=== PATIENT | female | born 1960 | race Caucasian/White ===

== ENCOUNTER 2024-12-10 13:22 | Inpatient (IN) | payer MEDICARE, OTHER ==
[~2024-12-10] VITALS: Ht 154.9 cm; Wt 35.8 kg
[2024-12-10] MEDS ORDERED: QUETIAPINE FUMARATE 25 MG TABLET PO PRN (16:30)
[2024-12-10] MEDS ORDERED: ZOLPIDEM TARTRATE 5 MG TABLET PO PRN ×2 (16:30)
[2024-12-10] MEDS ORDERED: ACETAMINOPHEN 325 MG TABLET PO PRN (16:30)
[2024-12-10] MEDS ORDERED: MAGNESIUM HYDROXIDE 30 ML UDC PO PRN (16:30)
[2024-12-10] MEDS ORDERED: MAG HYDROX/AL HYDROX/SIMETH 30 ML UDC PO PRN (16:30)
[2024-12-10 16:43] VITALS: BP 107/71; TEMP 97.9; O2SAT 98
[2024-12-10] MEDS ORDERED: ACET-73 PO (19:17)
[2024-12-10] MEDS ORDERED: POLY17PO4 PO (19:17)
[2024-12-10] MEDS ORDERED: BUSP15TA3 PO (19:17)
[2024-12-10] MEDS ORDERED: BISA10SU11 RC (19:17)
[2024-12-10] MEDS ORDERED: ALPR0.5T8 PO (19:17)
[2024-12-10] MEDS ORDERED: ACET325T53 PO (19:17)
[2024-12-10] MEDS ORDERED: OLAN10TA3 PO (19:17)
[2024-12-10] MEDS ORDERED: SENN8.6T19 PO (19:17)
[2024-12-10] MEDS ORDERED: MAGN400O6 PO (19:17)
[2024-12-10] MEDS ORDERED: PALI156D IM (19:17)
[2024-12-10] MEDS ORDERED: NA P133E RC (19:17)
[2024-12-10 21:17] VITALS: BP 92/67; TEMP 98.1; O2SAT 98
[2024-12-10] MEDS: Z GUARD REMEDY 4 OZ OINT TP SCH (21:25)
[2024-12-11] MEDS ORDERED: BISACODYL SUPP (10 MG) 10 MG/SUPP.RECT SUPP.RECT RC PRN (00:30)
[2024-12-11] MEDS ORDERED: MAGNESIUM HYDROXIDE 30 ML UDC PO PRN (00:30)
[2024-12-11] MEDS ORDERED: ACETAMINOPHEN 325 MG TABLET PO PRN (00:30)
[2024-12-11] MEDS ORDERED: ACETAMINOPHEN ES 500 MG TABLET PO PRN (00:30)
[2024-12-11] MEDS ORDERED: NA PHOS,M-B/NA PHOS,DI-BA 1 EA ENEMA RC PRN (00:30)
[2024-12-11 07:49] LABS: CHOLESTEROL 207 mg/dL (<200); HDL CHOLESTEROL 67 mg/dL (40-60); LDL 120 mg/dL (0-99); TRIGLYCERIDES 75 mg/dL (30-150)
[2024-12-11 08:00] VITALS: BP 96/62; TEMP 98.7; O2SAT 95
[2024-12-11 08:00] LABS: ALBUMIN 3.1 g/dL (3.4-5.0); BILIRUBIN,TOTAL 0.3 mg/dL (0.2-1.0); CALCIUM, SERUM 8.5 mg/dL (8.5-10.1); CREATININE 0.7 mg/dL (0.6-1.3); POTASSIUM 4.3 mmol/L (3.5-5.1); TOTAL PROTEIN, SERUM 6.2 g/dL (6.4-8.2)
[2024-12-11] MEDS: POLYETHYLENE GLYCOL 3350 17 GM POWD.PACK PO SCH (08:51)
[2024-12-11] MEDS: SENNOSIDES 8.6 MG TABLET PO SCH (08:51)
[2024-12-11] MEDS: ENSURE ENLIVE 237 ML LIQUID (VANILLA) PO SCH (11:15)
[2024-12-11 16:00] VITALS: BP 145/75; TEMP 97.9; O2SAT 96
[2024-12-11] MEDS: clonazePAM 0.5 MG TABLET PO SCH (19:04)
[2024-12-11 20:44] VITALS: BP 126/73; TEMP 98; O2SAT 97
[2024-12-11] MEDS: OLANZAPINE ZYDIS 5 MG TAB.RAPDIS PO SCH (21:42)
[2024-12-12 08:00] VITALS: BP 119/83; TEMP 98; O2SAT 98
[2024-12-12 16:00] VITALS: BP 109/81; TEMP 98; O2SAT 96
[2024-12-12 20:57] VITALS: BP 111/72; TEMP 97.7; O2SAT 96
[2024-12-13 08:00] VITALS: BP 108/76; TEMP 97.6; O2SAT 97
[2024-12-13] MEDS: DIVALPROEX SODIUM 125 MG TABLET.DR PO SCH (09:00)
[2024-12-13 16:00] VITALS: BP 118/66; TEMP 98; O2SAT 95
[2024-12-13 20:33] VITALS: BP 114/73; TEMP 97.5; O2SAT 96
[2024-12-14 21:20] VITALS: BP 116/79; TEMP 98.1; O2SAT 96
[2024-12-15 08:00] VITALS: BP 120/76; TEMP 98.6; O2SAT 98
[2024-12-15 16:00] VITALS: BP 131/75; TEMP 97.7; O2SAT 97
[2024-12-15 19:58] VITALS: BP 116/80; TEMP 98; O2SAT 100
[2024-12-16 08:00] VITALS: BP 116/72; TEMP 97.6; O2SAT 99
[2024-12-16 16:00] VITALS: BP 114/78; TEMP 97.8; O2SAT 98
[2024-12-16 19:23] LABS: BASOPHILS % (AUTO) 0.5 % (0.0-2.0); EOSINOPHILS % (AUTO) 0.4 % (0.0-6.0); HEMATOCRIT 40 % (33-45); HEMOGLOBIN 13.3 g/dL (11.5-14.8); LYMPHOCYTES # (AUTO) 1.4 K/uL (0.8-4.8); LYMPHOCYTES % (AUTO) 21.8 % (20.0-44.0); MEAN CORPUSCULAR HEMOGLOBIN 26 PG (26.0-33.0); MEAN CORPUSCULAR HGB CONC 33 g/dl (31.0-36.0); MEAN CORPUSCULAR VOLUME 80 fL (82-100); MONOCYTES # (AUTO) 0.4 K/uL (0.1-1.30); MONOCYTES % (AUTO) 5.6 % (2.0-12.0); NEUTROPHILS # (AUTO) 4.7 K/uL (1.8-8.9); NEUTROPHILS % (AUTO) 71.7 % (43.0-81.0); PLATELET COUNT (AUTO) 305 K/uL (150-450); RED BLOOD CELL COUNT(AUTO) 5.06 MIL/uL (4.0-5.2); RED CELL DISTRIBUTION WIDTH 14.7 % (11.5-15.0); WHITE BLOOD COUNT (AUTO) 6.5 K/uL (4.3-11.0)
[2024-12-16 19:43] LABS: ALBUMIN 3.3 g/dL (3.4-5.0); BILIRUBIN,TOTAL 0.4 mg/dL (0.2-1.0); CALCIUM, SERUM 8.9 mg/dL (8.5-10.1); CREATININE 0.6 mg/dL (0.6-1.3); MAGNESIUM 2.2 mg/dL (1.8-2.4); POTASSIUM 4.2 mmol/L (3.5-5.1); TOTAL PROTEIN, SERUM 6.4 g/dL (6.4-8.2)
[2024-12-16 20:22] VITALS: BP 105/72; TEMP 97.8; O2SAT 97
[2024-12-16 21:36] LABS: THYROID STIMULATING HORMONE 3.02 uIU/mL (0.358-3.74)
[2024-12-16] MEDS: ATORVASTATIN 10 MG TABLET PO SCH (22:00)
[2024-12-17 08:00] VITALS: BP 108/77; TEMP 98.7; O2SAT 98
[2024-12-17 12:05] LABS: APPEARANCE,URINE CLOUDY (CLEAR); BILIRUBIN,URINE 1+ (NEGATIVE); BLOOD, URINE TRACE-INTA Ery/uL (NEGATIVE); COLOR,URINE YELLOW (YELLOW); KETONES,URINE 3+ mg/dL (NEGATIVE); LEUKOCYTE ESTERASE ,URINE NEGATIVE (NEGATIVE); NITRITE, URINE NEGATIVE (NEGATIVE); PROTEIN,URINE TRACE mg/dl (NEGATIVE); UGLUCOSE NEGATIVE (NEGATIVE); UROBILINOGEN,URINE 0.2 EU/dL (0.2)
[2024-12-17 12:16] LABS: ADD URINE CULTURE YES; BACTERIA,URINE Few /HPF (None Seen); MUCUS,URINE Few /LPF (None Seen)
[2024-12-17] MEDS: MEGESTROL ACETATE 40 MG TABLET PO SCH (12:55)
[2024-12-17] MEDS: IV D5/ 0.9% NACL 1,000 ML IV ONE (13:30)
[2024-12-17 15:24] VITALS: BP 108/76; TEMP 98.7; O2SAT 97
[2024-12-17 20:00] VITALS: BP 147/98; TEMP 97.5; O2SAT 97
[2024-12-17 23:35] VITALS: BP 128/78; TEMP 98.2; O2SAT 98
[2024-12-18 08:00] VITALS: BP 102/70; TEMP 98; O2SAT 98
[2024-12-18] MEDS ORDERED: OLANZAPINE 10 MG VIAL IM PRN (11:00)
[2024-12-18] MEDS: DIVALPROEX SODIUM 125 MG TABLET.DR PO SCH (11:00)
[2024-12-18] MEDS: OLANZAPINE 10 MG VIAL IM PRN (11:44)
[2024-12-18 16:00] VITALS: BP 104/70; TEMP 99.5; O2SAT 98
[2024-12-18 20:00] VITALS: BP 97/54; TEMP 98.1; O2SAT 96
[2024-12-19] MEDS: IV NS 0.9% 1,000 ML BAG IV ONE (00:37)
[2024-12-19 08:00] VITALS: BP 97/69; TEMP 97.8; O2SAT 98
[2024-12-19] MEDS ORDERED: OLAN10VI IM ×2 (17:43)
[2024-12-19] MEDS ORDERED: MEGE40TA7 PO (17:43)
[2024-12-19] MEDS ORDERED: ATOR10TA PO (17:43)
[2024-12-19] MEDS ORDERED: DIVA125T32 PO (17:43)
[2024-12-19] MEDS ORDERED: ALLA266C2 TP (17:43)
[2024-12-19] MEDS ORDERED: CLON0.5T4 PO (17:43)
[2024-12-19] MEDS ORDERED: ZOLP5TAB8 PO (17:43)
[2024-12-19] MEDS ORDERED: OLAN5TAB6 PO (17:43)
[2024-12-19] MEDS ORDERED: LACT-246 PO (17:43)
[2024-12-19] MEDS ORDERED: MAG30ORA PO (17:43)
== END 2024-12-19 11:45 | disposition short-term general hospital (02) | DRG 885 ==
LOC: GPS 15:11
PROVIDERS: ADMIT Psychiatry & Neurology Psychiatry; ATTEND Nurse Practitioner Family
DX: F39 Unspecified mood [affective] disorder (principal); F06.8 Other specified mental disorders due to known physiological condition; Z68.1 Body mass index [BMI] 19.9 or less, adult; E44.1 Mild protein-calorie malnutrition; F29 Unspecified psychosis not due to a substance or known physiological condition; F41.9 Anxiety disorder, unspecified; F32.A Depression, unspecified; F20.0 Paranoid schizophrenia; G31.84 Mild cognitive impairment of uncertain or unknown etiology; Z73.6 Limitation of activities due to disability; Z91.199 Patient's noncompliance with other medical treatment and regimen due to unspecified reason; Z91.148 Patient's other noncompliance with medication regimen for other reason; Z86.59 Personal history of other mental and behavioral disorders; F06.1 Catatonic disorder due to known physiological condition
CPT/HCPCS: 36415; 80053-TC; 80061-TC; 81001; 82962-TC; 83735-TC; 84439-TC; 84443-TC; 85025-TC; 87086-TC; 97110-TC; 97112-TC; 97530-TC; A4223; J3490; J7030; J7042

== ENCOUNTER 2024-12-19 12:31 | Inpatient (IN) | payer MEDICARE, OTHER ==
[2024-12-19 12:15] VITALS: BP 132/61; TEMP 98.2; O2SAT 98
[~2024-12-19 12:31] MED LIST: ACET-73 PO; ACET325T53 PO; ALPR0.5T8 PO; BISA10SU11 RC; BUSP15TA3 PO; MAGN400O6 PO; NA P133E RC; OLAN10TA3 PO; PALI156D IM; POLY17PO4 PO; SENN8.6T19 PO
[2024-12-19] MEDS ORDERED: MAGNESIUM HYDROXIDE 30 ML UDC PO PRN ×2 (13:00)
[2024-12-19] MEDS ORDERED: MAG HYDROX/AL HYDROX/SIMETH 30 ML UDC PO PRN (13:00)
[2024-12-19] MEDS ORDERED: Z GUARD REMEDY 4 OZ OINT TP PRN (13:00)
[2024-12-19] MEDS ORDERED: ONDANSETRON HCL/PF 4 MG/2 ML VIAL IVP PRN (13:00)
[2024-12-19] MEDS ORDERED: NA PHOS,M-B/NA PHOS,DI-BA 1 EA ENEMA RC PRN (13:00)
[2024-12-19] MEDS ORDERED: BISACODYL SUPP (10 MG) 10 MG/SUPP.RECT SUPP.RECT RC PRN (13:00)
[2024-12-19] MEDS: ALPRAZOLAM 0.5 MG TABLET PO SCH (13:00)
[2024-12-19] MEDS ORDERED: ACETAMINOPHEN 325 MG TABLET PO PRN ×2 (13:00)
[2024-12-19] MEDS ORDERED: ACETAMINOPHEN ES 500 MG TABLET PO PRN (13:00)
[2024-12-19] MEDS ORDERED: ZOLPIDEM TARTRATE 5 MG TABLET PO PRN (13:00)
[2024-12-19] MEDS: IV NS 0.9% 1,000 ML IV PRN (14:09)
[2024-12-19 15:14] LABS: BASOPHILS % (AUTO) 0.4 % (0.0-2.0); EOSINOPHILS % (AUTO) 0.2 % (0.0-6.0); HEMATOCRIT 39 % (33-45); HEMOGLOBIN 12.9 g/dL (11.5-14.8); LYMPHOCYTES # (AUTO) 1.3 K/uL (0.8-4.8); LYMPHOCYTES % (AUTO) 17.5 % (20.0-44.0); MEAN CORPUSCULAR HEMOGLOBIN 26 PG (26.0-33.0); MEAN CORPUSCULAR HGB CONC 34 g/dl (31.0-36.0); MEAN CORPUSCULAR VOLUME 79 fL (82-100); MONOCYTES # (AUTO) 0.6 K/uL (0.1-1.30); MONOCYTES % (AUTO) 7.9 % (2.0-12.0); NEUTROPHILS # (AUTO) 5.4 K/uL (1.8-8.9); PLATELET COUNT (AUTO) 304 K/uL (150-450); RED BLOOD CELL COUNT(AUTO) 4.88 MIL/uL (4.0-5.2); RED CELL DISTRIBUTION WIDTH 14.5 % (11.5-15.0); WHITE BLOOD COUNT (AUTO) 7.3 K/uL (4.3-11.0)
[2024-12-19 15:45] LABS: CARBON DIOXIDE 30 mmol/L (21-32); CHLORIDE 101 mmol/L (98-107); CREATININE 0.6 mg/dL (0.6-1.3); GLUCOSE 100 mg/dL (74-106); POTASSIUM 4.6 mmol/L (3.5-5.1); SODIUM SERUM 134 mmol/L (136-145); UREA NITROGEN, BLOOD 19 mg/dL (7-18)
[2024-12-19 15:50] LABS: ALANINE AMINOTRANSFERASE 16 U/L (12-78); ALKALINE PHOSPHATASE 86 U/L (46-116); ASPARTATE AMINOTRANSFERASE 13 U/L (15-37); BILIRUBIN,TOTAL 0.3 mg/dL (0.2-1.0); TOTAL PROTEIN, SERUM 5.8 g/dL (6.4-8.2)
[2024-12-19 16:00] VITALS: BP 101/64; TEMP 97.5; O2SAT 96
[2024-12-19] MEDS: busPIRone 5 MG TABLET PO SCH (17:00)
[2024-12-19] MEDS: OLANZAPINE 10 MG TABLET PO SCH (17:00)
[2024-12-19] MEDS: SENNOSIDES 8.6 MG TABLET PO SCH (17:00)
[2024-12-19] MEDS: POLYETHYLENE GLYCOL 3350 17 GM POWD.PACK PO SCH (17:00)
[2024-12-19 17:30] VITALS: BP 100/60; TEMP 97.8; O2SAT 96
[2024-12-19] MEDS ORDERED: ALLA266C2 TP (17:43)
[2024-12-19] MEDS ORDERED: LACT-246 PO (17:43)
[2024-12-19] MEDS ORDERED: CLON0.5T4 PO (17:43)
[2024-12-19] MEDS ORDERED: OLAN10VI IM ×2 (17:43)
[2024-12-19] MEDS ORDERED: ZOLP5TAB8 PO (17:43)
[2024-12-19] MEDS ORDERED: MAG30ORA PO (17:43)
[2024-12-19] MEDS ORDERED: DIVA125T32 PO (17:43)
[2024-12-19] MEDS ORDERED: OLAN5TAB6 PO (17:43)
[2024-12-19] MEDS ORDERED: MEGE40TA7 PO (17:43)
[2024-12-19] MEDS ORDERED: ATOR10TA PO (17:43)
[2024-12-19 18:13] LABS: BILIRUBIN,DIRECT 0.1 mg/dL (0.0-0.2)
[2024-12-19 18:40] LABS: LACTIC ACID REFLEX 0.8 mmol/L (0.4-1.9)
[2024-12-19 20:00] VITALS: BP 91/56; TEMP 97.7; O2SAT 96
[2024-12-20 04:00] VITALS: BP 91/54; TEMP 98.2; O2SAT 96
[2024-12-20 05:55] LABS: BASOPHILS % (AUTO) 0.5 % (0.0-2.0); EOSINOPHILS # (AUTO) 0.1 K/uL (0.0-0.7); EOSINOPHILS % (AUTO) 1.4 % (0.0-6.0); HEMATOCRIT 35 % (33-45); HEMOGLOBIN 11.7 g/dL (11.5-14.8); LYMPHOCYTES # (AUTO) 1.8 K/uL (0.8-4.8); LYMPHOCYTES % (AUTO) 34.4 % (20.0-44.0); MEAN CORPUSCULAR HEMOGLOBIN 27 PG (26.0-33.0); MEAN CORPUSCULAR HGB CONC 34 g/dl (31.0-36.0); MEAN CORPUSCULAR VOLUME 79 fL (82-100); MONOCYTES # (AUTO) 0.5 K/uL (0.1-1.30); MONOCYTES % (AUTO) 8.8 % (2.0-12.0); NEUTROPHILS # (AUTO) 2.9 K/uL (1.8-8.9); NEUTROPHILS % (AUTO) 54.9 % (43.0-81.0); PLATELET COUNT (AUTO) 260 K/uL (150-450); RED BLOOD CELL COUNT(AUTO) 4.41 MIL/uL (4.0-5.2); RED CELL DISTRIBUTION WIDTH 14.4 % (11.5-15.0); WHITE BLOOD COUNT (AUTO) 5.2 K/uL (4.3-11.0)
[2024-12-20 06:30] LABS: CALCIUM, SERUM 8.3 mg/dL (8.5-10.1); CREATININE 0.5 mg/dL (0.6-1.3); MAGNESIUM 1.8 mg/dL (1.8-2.4); POTASSIUM 4.1 mmol/L (3.5-5.1)
[2024-12-20] MEDS: OLANZAPINE 10 MG TABLET PO SCH (08:27)
[2024-12-20 12:00] VITALS: BP 102/61; TEMP 98.9; O2SAT 99
[2024-12-20] MEDS: ENSURE ENLIVE 237 ML LIQUID (VANILLA) PO SCH (12:39)
[2024-12-20] MEDS: MEGESTROL ACETATE SUSP 400 MG/10 ML UDC PO SCH (16:55)
[2024-12-20 20:00] VITALS: BP 118/63; TEMP 98.2; O2SAT 100
[2024-12-21 04:00] VITALS: BP 120/65; TEMP 98; O2SAT 100
[2024-12-21 07:34] LABS: CALCIUM, SERUM 8.7 mg/dL (8.5-10.1); CREATININE 0.5 mg/dL (0.6-1.3); POTASSIUM 3.9 mmol/L (3.5-5.1)
[2024-12-21 08:00] VITALS: BP 122/67; TEMP 98; O2SAT 95
[2024-12-21] MEDS: OLANZAPINE 10 MG VIAL IM PRN (11:04)
[2024-12-21 16:00] VITALS: BP 109/64; TEMP 98.1; O2SAT 97
[2024-12-21 20:00] VITALS: BP 122/94; TEMP 98.4; O2SAT 99
[2024-12-22 04:00] VITALS: BP 112/70; TEMP 98.4; O2SAT 98
[2024-12-22 07:09] LABS: ALBUMIN 2.6 g/dL (3.4-5.0); BILIRUBIN,DIRECT 0.1 mg/dL (0.0-0.2); BILIRUBIN,TOTAL 0.3 mg/dL (0.2-1.0); TOTAL PROTEIN, SERUM 5.4 g/dL (6.4-8.2)
[2024-12-22 08:37] VITALS: BP 118/67; TEMP 98.4; O2SAT 95
[2024-12-22 16:52] VITALS: BP 118/67; TEMP 97.5; O2SAT 97
[2024-12-22 20:00] VITALS: BP 125/75; TEMP 98.6; O2SAT 98
[2024-12-23 04:00] VITALS: BP 116/71; TEMP 97.5; O2SAT 96
[2024-12-23 08:00] VITALS: BP 116/71; TEMP 99.3; O2SAT 97
[2024-12-23] MEDS: ENSURE ENLIVE 237 ML LIQUID (VANILLA) PO SCH (13:00)
[2024-12-23 16:00] VITALS: BP 113/70; TEMP 97.7; O2SAT 95
[2024-12-23] MEDS: OLANZAPINE 10 MG TABLET PO SCH (17:00)
[2024-12-23] MEDS: OLANZAPINE 10 MG VIAL IM PRN (18:34)
[2024-12-23] MEDS: IV D5/ 0.9% NACL 1,000 ML IV PRN (18:39)
[2024-12-23 20:00] VITALS: BP 107/58; TEMP 98.4; O2SAT 98
[2024-12-24 04:00] VITALS: BP 109/71; TEMP 98.2; O2SAT 96
[2024-12-24 07:43] LABS: BASOPHILS % (AUTO) 0.2 % (0.0-2.0); EOSINOPHILS # (AUTO) 0.1 K/uL (0.0-0.7); EOSINOPHILS % (AUTO) 1.3 % (0.0-6.0); HEMATOCRIT 35 % (33-45); HEMOGLOBIN 12.1 g/dL (11.5-14.8); LYMPHOCYTES # (AUTO) 1.5 K/uL (0.8-4.8); LYMPHOCYTES % (AUTO) 21.5 % (20.0-44.0); MEAN CORPUSCULAR HEMOGLOBIN 27 PG (26.0-33.0); MEAN CORPUSCULAR HGB CONC 34 g/dl (31.0-36.0); MEAN CORPUSCULAR VOLUME 78 fL (82-100); MONOCYTES # (AUTO) 0.5 K/uL (0.1-1.30); MONOCYTES % (AUTO) 7.6 % (2.0-12.0); NEUTROPHILS # (AUTO) 4.8 K/uL (1.8-8.9); NEUTROPHILS % (AUTO) 69.4 % (43.0-81.0); PLATELET COUNT (AUTO) 264 K/uL (150-450); RED BLOOD CELL COUNT(AUTO) 4.52 MIL/uL (4.0-5.2); RED CELL DISTRIBUTION WIDTH 14.8 % (11.5-15.0); WHITE BLOOD COUNT (AUTO) 6.9 K/uL (4.3-11.0)
[2024-12-24 08:00] VITALS: BP 120/64; TEMP 98.6; O2SAT 96
[2024-12-24 08:08] LABS: ALBUMIN 2.6 g/dL (3.4-5.0); BILIRUBIN,TOTAL 0.3 mg/dL (0.2-1.0); CALCIUM, SERUM 8.4 mg/dL (8.5-10.1); CREATININE 0.5 mg/dL (0.6-1.3); MAGNESIUM 2.1 mg/dL (1.8-2.4); PHOSPHORUS 3.5 mg/dL (2.5-4.9); POTASSIUM 3.8 mmol/L (3.5-5.1); TOTAL PROTEIN, SERUM 5.6 g/dL (6.4-8.2)
[2024-12-24 16:00] VITALS: BP 107/61; TEMP 97.9; O2SAT 97
[2024-12-24 20:00] VITALS: BP 118/78; TEMP 98.2; O2SAT 100
[2024-12-25 04:00] VITALS: BP 120/60; TEMP 98.6; O2SAT 100
[2024-12-25 08:00] VITALS: BP 130/64; TEMP 98.2; O2SAT 100
[2024-12-25 08:10] LABS: BASOPHILS % (AUTO) 0.4 % (0.0-2.0); EOSINOPHILS # (AUTO) 0.1 K/uL (0.0-0.7); HEMATOCRIT 33 % (33-45); HEMOGLOBIN 11.3 g/dL (11.5-14.8); LYMPHOCYTES # (AUTO) 1.3 K/uL (0.8-4.8); LYMPHOCYTES % (AUTO) 21.1 % (20.0-44.0); MEAN CORPUSCULAR HEMOGLOBIN 27 PG (26.0-33.0); MEAN CORPUSCULAR HGB CONC 34 g/dl (31.0-36.0); MEAN CORPUSCULAR VOLUME 79 fL (82-100); MONOCYTES # (AUTO) 0.5 K/uL (0.1-1.30); MONOCYTES % (AUTO) 8.4 % (2.0-12.0); NEUTROPHILS # (AUTO) 4.1 K/uL (1.8-8.9); NEUTROPHILS % (AUTO) 68.1 % (43.0-81.0); PLATELET COUNT (AUTO) 267 K/uL (150-450); RED BLOOD CELL COUNT(AUTO) 4.24 MIL/uL (4.0-5.2); RED CELL DISTRIBUTION WIDTH 14.7 % (11.5-15.0)
[2024-12-25 08:32] LABS: ALBUMIN 2.5 g/dL (3.4-5.0); BILIRUBIN,TOTAL 0.2 mg/dL (0.2-1.0); CALCIUM, SERUM 8.2 mg/dL (8.5-10.1); CREATININE 0.5 mg/dL (0.6-1.3); PHOSPHORUS 3.2 mg/dL (2.5-4.9); POTASSIUM 3.6 mmol/L (3.5-5.1); TOTAL PROTEIN, SERUM 5.4 g/dL (6.4-8.2)
[2024-12-25 16:00] VITALS: BP 125/61; TEMP 97.9; O2SAT 98
[2024-12-25] MEDS: OLANZAPINE 10 MG TABLET PO SCH (17:00)
[2024-12-25 20:00] VITALS: BP 120/91; TEMP 98.4; O2SAT 98
[2024-12-26 08:43] VITALS: BP 110/79; TEMP 98; O2SAT 98
[2024-12-26] MEDS: OLANZAPINE 10 MG VIAL IM PRN (09:10)
[2024-12-26 16:46] VITALS: BP 124/77; TEMP 98.6; O2SAT 96
[2024-12-26] MEDS ORDERED: MEGE400O6 PO (21:46)
[2024-12-26] MEDS ORDERED: BUSP10TA35 PO (21:47)
== END 2024-12-26 17:38 | DRG 640 ==
LOC: MEDSG1 12:32 → MED 12-25 11:21
PROVIDERS: ADMIT Nurse Practitioner Acute Care; ATTEND Nurse Practitioner Acute Care
DX: R62.7 Adult failure to thrive (principal); G93.41 Metabolic encephalopathy; F20.0 Paranoid schizophrenia; E86.0 Dehydration; F32.A Depression, unspecified; F29 Unspecified psychosis not due to a substance or known physiological condition; F39 Unspecified mood [affective] disorder; G31.84 Mild cognitive impairment of uncertain or unknown etiology; F41.9 Anxiety disorder, unspecified; Z88.7 Allergy status to serum and vaccine; Z79.899 Other long term (current) drug therapy; R79.89 Other specified abnormal findings of blood chemistry; Z73.6 Limitation of activities due to disability
CPT/HCPCS: 36415; 71045-TC; 80048-TC; 80053-TC; 80076-TC; 82140-TC; 82248-TC; 82962-TC; 83605-TC; 83735-TC; 84100-TC; 85025-TC; 87086-TC; 87186-TC; 92526; 92611-TC; G0378; J3490; J7030; J7042

== ENCOUNTER 2024-12-26 18:10 | Inpatient (IN) | payer MEDICARE, OTHER ==
[~2024-12-26] VITALS: Ht 154.9 cm; Wt 37.2 kg
[~2024-12-26 18:10] MED LIST changes: +ALLA266C2 TP; -ALPR0.5T8 PO; +ATOR10TA PO; -BUSP15TA3 PO; +CLON0.5T4 PO; +DIVA125T32 PO; +LACT-246 PO; +MAG30ORA PO; +MEGE40TA7 PO; -OLAN10TA3 PO; +OLAN10VI IM; +OLAN5TAB6 PO; -PALI156D IM; +ZOLP5TAB8 PO
[2024-12-26] MEDS ORDERED: ACETAMINOPHEN 325 MG TABLET PO PRN ×2 (19:30→23:30)
[2024-12-26] MEDS ORDERED: MAG HYDROX/AL HYDROX/SIMETH 30 ML UDC PO PRN (19:30)
[2024-12-26] MEDS ORDERED: MAGNESIUM HYDROXIDE 30 ML UDC PO PRN (19:30)
[2024-12-26] MEDS: BLOOD SUGAR DIAGNOSTIC 1 EACH STRIP IN ONE (20:14)
[2024-12-26] MEDS: OLANZAPINE 10 MG TABLET PO SCH (21:00)
[2024-12-26] MEDS ORDERED: MEGE400O6 PO (21:46)
[2024-12-26] MEDS ORDERED: BUSP10TA35 PO (21:47)
[2024-12-26 21:49] VITALS: BP 120/64; TEMP 98.2; O2SAT 100
[2024-12-26] MEDS: OLANZAPINE 10 MG VIAL IM PRN (22:42)
[2024-12-26] MEDS ORDERED: NA PHOS,M-B/NA PHOS,DI-BA 1 EA ENEMA RC PRN (23:30)
[2024-12-26] MEDS ORDERED: BISACODYL SUPP (10 MG) 10 MG/SUPP.RECT SUPP.RECT RC PRN (23:30)
[2024-12-27 08:00] VITALS: BP 112/73; TEMP 97.8; O2SAT 95
[2024-12-27 08:48] LABS: ALBUMIN 2.8 g/dL (3.4-5.0); BILIRUBIN,TOTAL 0.4 mg/dL (0.2-1.0); CALCIUM, SERUM 8.8 mg/dL (8.5-10.1); CREATININE 0.6 mg/dL (0.6-1.3)
[2024-12-27 08:52] LABS: CHOLESTEROL 171 mg/dL (<200); HDL CHOLESTEROL 63 mg/dL (40-60); LDL 96 mg/dL (0-99); TRIGLYCERIDES 61 mg/dL (30-150)
[2024-12-27] MEDS: POLYETHYLENE GLYCOL 3350 17 GM POWD.PACK PO SCH (09:00)
[2024-12-27] MEDS: SENNOSIDES 8.6 MG TABLET PO SCH (09:00)
[2024-12-27] MEDS: MEGESTROL ACETATE SUSP 400 MG/10 ML UDC PO SCH (09:00)
[2024-12-27] MEDS: ENSURE ENLIVE CHOC 237 ML CAN PO SCH (09:09)
[2024-12-27 16:00] VITALS: BP 106/66; TEMP 97.9; O2SAT 94
[2024-12-27 20:09] LABS: CREATININE 0.6 mg/dL (0.6-1.3)
[2024-12-27 21:31] VITALS: BP 102/59; TEMP 97.8; O2SAT 98
[2024-12-28 08:00] VITALS: BP 107/61; TEMP 97.7; O2SAT 99
[2024-12-28 16:00] VITALS: BP 100/60; TEMP 98.6; O2SAT 97
[2024-12-28] MEDS: HALOPERIDOL 5 MG TABLET PO SCH (21:00)
[2024-12-28 21:15] VITALS: BP 102/54; TEMP 98.6; O2SAT 97
[2024-12-28] MEDS: HALOPERIDOL LACTATE INJ 5 MG/ML VIAL IM PRN (21:40)
[2024-12-29 08:00] VITALS: BP 101/62; TEMP 97.9; O2SAT 97
[2024-12-29 16:00] VITALS: BP 131/81; TEMP 97.5; O2SAT 97
[2024-12-29 19:54] VITALS: BP 98/56; TEMP 97.5; O2SAT 100
[2024-12-29] MEDS: HALOPERIDOL 5 MG TABLET PO SCH (20:37)
[2024-12-30 07:46] LABS: CALCIUM, SERUM 8.6 mg/dL (8.5-10.1); CREATININE 0.5 mg/dL (0.6-1.3); POTASSIUM 4.1 mmol/L (3.5-5.1)
[2024-12-30 08:00] VITALS: BP 125/80; TEMP 97.8; O2SAT 99
[2024-12-30] MEDS: HALOPERIDOL LACTATE INJ 5 MG/ML VIAL IM PRN (08:38)
[2024-12-30 16:00] VITALS: BP 131/77; TEMP 97.8; O2SAT 98
[2024-12-30 20:00] VITALS: BP 100/61; TEMP 97.8; O2SAT 97
[2024-12-30] MEDS: MIRTAZAPINE SOLUTAB 15 MG/UDTABLET TAB.RAPDIS PO SCH (22:00)
[2024-12-31 08:00] VITALS: BP 112/76; TEMP 98.1; O2SAT 98
[2024-12-31 16:00] VITALS: BP 107/61; TEMP 97.7; O2SAT 98
[2024-12-31] MEDS: ENSURE ENLIVE 237 ML LIQUID (VANILLA) PO SCH (17:31)
[2024-12-31 19:48] VITALS: BP 108/56; TEMP 98.2; O2SAT 95
[2025-01-01 08:00] VITALS: BP 119/60; TEMP 97.6; O2SAT 95
[2025-01-01] MEDS: HALOPERIDOL DECANOATE IM 100 MG/ML AMPUL IM ONE (12:31)
[2025-01-01 16:00] VITALS: BP 127/63; TEMP 97.9; O2SAT 98
[2025-01-01 20:00] VITALS: BP 92/57; TEMP 97.9; O2SAT 96
[2025-01-02 07:47] LABS: ALBUMIN 2.8 g/dL (3.4-5.0); BILIRUBIN,TOTAL 0.2 mg/dL (0.2-1.0); CALCIUM, SERUM 8.8 mg/dL (8.5-10.1); CREATININE 0.6 mg/dL (0.6-1.3); POTASSIUM 4.2 mmol/L (3.5-5.1); TOTAL PROTEIN, SERUM 6.2 g/dL (6.4-8.2)
[2025-01-02 08:00] VITALS: BP 117/62; TEMP 97.8; O2SAT 95
[2025-01-02 16:00] VITALS: BP 125/70; TEMP 97.8; O2SAT 96
[2025-01-02 20:00] VITALS: BP 95/56; TEMP 97.9; O2SAT 97
[2025-01-03 08:00] VITALS: BP 124/69; TEMP 97.8; O2SAT 97
[2025-01-03 16:00] VITALS: BP 96/61; TEMP 98; O2SAT 98
[2025-01-03 21:20] VITALS: BP 92/64; TEMP 98; O2SAT 96
[2025-01-04 08:00] VITALS: BP 101/60; TEMP 97.5; O2SAT 97
[2025-01-04 16:00] VITALS: BP 126/78; TEMP 98.2; O2SAT 100
[2025-01-04 20:22] VITALS: BP 116/68; TEMP 97.9; O2SAT 97
[2025-01-05 08:00] VITALS: BP 108/64; TEMP 97.9; O2SAT 96
[2025-01-05 15:41] VITALS: BP 107/67; TEMP 98; O2SAT 97
[2025-01-05 20:00] VITALS: BP 104/72; TEMP 98.6; O2SAT 97
[2025-01-06 08:00] VITALS: BP 94/50; TEMP 97.6; O2SAT 97
[2025-01-06 16:00] VITALS: BP 132/85; TEMP 98; O2SAT 98
[2025-01-06 20:12] VITALS: BP 142/80; TEMP 97.5; O2SAT 99
[2025-01-07 08:00] VITALS: BP 121/67; TEMP 97.9; O2SAT 98
== END 2025-01-07 15:30 | DRG 885 ==
LOC: GPS 18:10
PROVIDERS: ADMIT Psychiatry & Neurology Psychiatry; ATTEND Nurse Practitioner Acute Care
DX: F20.0 Paranoid schizophrenia (principal); G93.41 Metabolic encephalopathy; E44.1 Mild protein-calorie malnutrition; Z68.1 Body mass index [BMI] 19.9 or less, adult; R62.7 Adult failure to thrive; G31.84 Mild cognitive impairment of uncertain or unknown etiology; Z79.899 Other long term (current) drug therapy; Z73.6 Limitation of activities due to disability; F41.9 Anxiety disorder, unspecified; F32.A Depression, unspecified; Z91.199 Patient's noncompliance with other medical treatment and regimen due to unspecified reason; Z91.148 Patient's other noncompliance with medication regimen for other reason; R63.0 Anorexia; Z86.59 Personal history of other mental and behavioral disorders
CPT/HCPCS: 36415; 80048-TC; 80053-TC; 80061-TC; 82565-TC; 82962-TC; 87081-TC; 97116-TC; 97530-TC; J1630; J1631; J3490